=== PATIENT | male | born 1980 | race Caucasian/White ===

== ENCOUNTER 2016-08-28 09:20 | Emergency (ER) | payer OTHER ==
[~2016-08-28] VITALS: Ht 170.2 cm; Wt 77.0 kg
[2016-08-28 09:22] VITALS: BP 126/80
== END 2016-08-28 10:30 | disposition home or self-care (01) ==
LOC: EMS 09:23
DX: S60.561A Insect bite (nonvenomous) of right hand, initial encounter (principal); M79.89 Other specified soft tissue disorders; W57.XXXA Bitten or stung by nonvenomous insect and other nonvenomous arthropods, initial encounter; Y93.89 Activity, other specified; Y92.89 Other specified places as the place of occurrence of the external cause; Y99.8 Other external cause status
CPT/HCPCS: 99282; 99283